=== PATIENT | female | born 1995 | race Caucasian/White ===

== ENCOUNTER 2019-06-16 16:39 | Emergency (ER) | payer OTHER ==
--- NOTE | 2019-06-16 16:50 | PDOC ---
Rapid Medical Evaluation Time Seen by Provider: 06/16/19 16:48 Medical Evaluation: Allergies Allergy/AdvReac Type Severity Reaction Status Date / Time No Known Allergies Allergy Verified 10/16/16 19:22 06/16/19 16:49 This patient had a brief in-person evaluation in triage CC: left lower abdominal pain , 5 weeks . Denies vaginal bleeding or dysuria PE: NAD unlabored breathing mild tenderness in left lower abdomen orders: labs, urine test This patient will proceed to the ED for further evaluation Discharge Disposition - Diagnosis Abdominal pain - Referrals - Patient Instructions - Post Discharge Activity
[2019-06-16 16:52] VITALS: BP 95/59; PULSE 78; TEMP 98.5; BMI 23.8
--- NOTE | 2019-06-16 18:57 | PDOC ---
History of Present Illness - General Chief Complaint: Pain Stated Complaint: LOWER LT SIDE PAIN/DISCOMFORT 5WKS Time Seen by Provider: 06/16/19 16:48 - History of Present Illness Initial Comments: 06/16/19 18:52 CHIEF COMPLAINT: pelvic pain HISTORY OF PRESENT ILLNESS: 23 yo presents to ED with left pelvic pain x 2- 3 days. Patient reports feeling a sharp pain to her left side in the evenings, "like something is squishing." Reports "some cramping sometimes," denies any vaginal bleeding, unusual odor or discharge. Reports urinary frequency but denies dysuria. LMP 6/15. No recent travel or sick contacts. PAST MEDICAL HISTORY: Denies past medical history FAMILY HISTORY: Denies SOCIAL HISTORY: Denies tobacco, alcohol, illicit drug use. SURGICAL HISTORY: Denies ALLERGIES: No known drug allergies REVIEW OF SYSTEMS General/Constitutional: Denies fever or chills. Denies weakness, weight change. HEENT: Denies change in vision. Denies ear pain or discharge. Denies sore throat. Cardiovascular: Denies chest pain or shortness of breath. Respiratory: Denies cough, wheezing, or hemoptysis. Gastrointestinal: Denies nausea, vomiting, diarrhea or constipation. Denies rectal bleeding. Genitourinary: Left pelvic pain. Urinary frequency x weeks. Denies dysuria,or change in urination. Musculoskeletal: Denies joint or muscle swelling or pain. Denies neck or back pain. Skin and breasts: Denies rash or easy bruising. Neurologic: Denies headache, vertigo, loss of consciousness, or loss of sensation. PHYSICAL EXAM General Appearance: Well-appearing, appropriately dressed. No apparent distress , no intoxication. HEENT: EOMI, PERRLA, normal ENT inspection, normal voice, TMs normal, pharynx normal. No conjunctival pallor. No photophobia, scleral icterus. Neck: Supple. Trachea midline. No tenderness, rigidity, carotid bruit, stridor , lymphadenopathy, or thyromegaly. Respiratory/Chest: Lungs CTAB. No shortness of breath, chest tenderness, respiratory distress, accessory muscle use. No crackles, rales, rhonchi, stridor , wheezing, dullness Cardiovascular: RRR. S1, S2. No JVD, murmur, bradycardia, tachycardia. Vascular Pulses: Dorsalis-Pedis (R): 2+, Dorsalis-Pedis (L): 2+ Gastrointestinal/Abdominal: Mild LLQ vs pelvic tenderness. Normal bowel sounds. Abdomen soft, non-distended. No tenderness or rebound tenderness. No organomegaly, pulsatile mass, guarding, hernia, hepatomegaly, splenomegaly. Lymphatic: No adenopathy, tenderness. Musculoskeletal/Extremities: Normal inspection. FROM of all extremities, normal capillary refill. Pelvis Stable. No CVA tenderness. No tenderness to extremities, pedal edema, swelling, erythema or deformity. Integumentary: Appropriate color, dry, warm. No cyanosis, erythema, jaundice or rash Neurologic: thermostatic controls supervisor II-XII intact. Fully oriented, alert. Appropriate mood/affect. Motor strength 5/5. No appreciable EOM palsy, facial droop or sensory deficit. 06/16/19 21:48 Past History - Past Medical History Allergies/Adverse Reactions: Allergies Allergy/AdvReac Type Severity Reaction Status Date / Time No Known Allergies Allergy Verified 06/16/19 16:52 Home Medications: Ambulatory Orders Cefuroxime Axetil [Ceftin -] 500 mg PO Q12H #20 tablet 10/14/16 Sulfamethoxazole/Trimethoprim [Bactrim Oral Suspension -] 10 ml PO BID #100 ml 10/16/16 Asthma: No Cancer: No Cardiac Disorders: No COPD: No Diabetes: No HTN: No Seizures: No Thyroid Disease: No - Surgical History Appendectomy: Yes - Suicide/Smoking/Psychosocial Hx Smoking History: Never smoked Have you smoked in the past 12 months: No Information on smoking cessation initiated: No Hx Alcohol Use: No Drug/Substance Use Hx: No Hx Substance Use Treatment: No *Physical Exam - Vital Signs Last Vital Signs Temp Pulse Resp BP Pulse Ox 98.5 F 78 19 95/59 L 100 06/16/19 16:49 06/16/19 16:49 06/16/19 16:49 06/16/19 16:49 06/16/19 16:49 ED Treatment Course - LABORATORY CBC & Chemistry Diagram: 06/16/19 18:50 06/16/19 18:50 Medical Decision Making - Medical Decision Making 06/16/19 21:48 23 yo presents to ED with left pelvic pain x 2-3 days. -labs, urine, TVUS US positive for IUP, gest age 5 wks 5 days. Advised pt to return to ED in 2 days for repeat bloodwork. Patient verbalized understanding and agrees to plan. *DC/Admit/Observation/Transfer Diagnosis at time of Disposition: Threatened miscarriage - Discharge Dispostion Disposition: HOME Condition at time of disposition: Stable Decision to Admit order: No - Referrals Referrals: Karissa Decker CNM [Certified Nurse [employer]] - - Patient Instructions Printed Discharge Instructions: DI for Threatened Additional Instructions: Please return on 48 hours for repeat bloodwork and ultrasound for continued evaluation of your symptoms. If you develop any vaginal bleeding, severe pain, or any new or worsening symptoms, please return to the ER. - Post Discharge Activity
[2019-06-16] MEDS ORDERED: SODIUM CHLORIDE 0.9% 500 ML INFUS.BAG IV ONE (19:29)
[2019-06-16 19:31] LABS: BASO % 0.8 % (0-2.0); EOS % 1.3 % (0-4.5); HEMATOCRIT 38.3 % (32.4-45.2); HEMOGLOBIN 12.9 GM/dL (10.7-15.3); LYMPH % 29.1 % (8-40); MCH 28.8 pg (25.7-33.7); MCHC 33.7 g/dl (32.0-36.0); MEAN CELL VOLUME 85.5 fl (80-96); MEAN PLT VOLUME 9.3 fl (7.5-11.1); MONO % 6.9 % (3.8-10.2); NEUT % 61.9 % (42.8-82.8); PLATELET COUNT 241 K/MM3 (134-434); RBC 4.49 M/mm3 (3.60-5.2); RDW 12.9 % (11.6-15.6); WHITE BLOOD COUNT 10.8 K/mm3 (4.0-10.0)
[2019-06-16 19:32] LABS: HYALINE CASTS 5 /lpf (0-8); URINE APPEARANCE CLEAR; URINE BACTERIA 52.5 /hpf (NEGATIVE); URINE BILIRUBIN NEGATIVE (NEGATIVE); URINE COLOR YELLOW; URINE GLUCOSE (UA) NEGATIVE (NEGATIVE); URINE KETONE TRACE (NEGATIVE); URINE LEUK ESTERASE TRACE (NEGATIVE); URINE NITRITE NEGATIVE (NEGATIVE); URINE PROTEIN NEGATIVE (NEGATIVE); URINE RBC 1 /hpf (0-4); URINE WBC 2 /hpf (0-5)
[2019-06-16 19:50] LABS: ALBUMIN 4.2 g/dl (3.4-5.0); BILIRUBIN,TOTAL 0.4 mg/dL (0.2-1); BLOOD UREA NITROGEN 10.6 mg/dL (7-18); CALCIUM 9.1 mg/dL (8.5-10.1); CREATININE 0.9 mg/dL (0.55-1.3); POTASSIUM 3.9 mmol/L (3.5-5.1); TOT PROT 7.9 g/dl (6.4-8.2)
== END 2019-06-16 22:00 | disposition home or self-care (01) ==
LOC: JER 16:39
PROC: 3E0337Z Introduction of Electrolytic and Water Balance Substance into Peripheral Vein, Percutaneous Approach (ICD-10-PCS; principal; 2019-06-16)
DX: O26.891 Other specified pregnancy related conditions, first trimester (principal); Z3A.01 Less than 8 weeks gestation of pregnancy; R10.9 Unspecified abdominal pain
CPT/HCPCS: 36415; 76817-TC; 80053; 81003; 84702; 85025; 86850; 86900; 86901; 87077; 87086; 87491; 87591; 99283-25

== ENCOUNTER 2020-02-13 02:50 | Inpatient (IN) | payer OTHER ==
[2020-02-13] MEDS: ELECTROLYTE-148 SOLN 1,000 ML IV SCH ×2 (03:15→04:45)
[2020-02-13 03:50] LABS: BASO % 0.5 % (0-2.0); EOS % 0.7 % (0-4.5); HEMATOCRIT 37.3 % (32.4-45.2); HEMOGLOBIN 12.4 GM/dL (10.7-15.3); LYMPH % 30.6 % (8-40); MCH 28.5 pg (25.7-33.7); MCHC 33.2 g/dl (32.0-36.0); MEAN CELL VOLUME 85.8 fl (80-96); MEAN PLT VOLUME 9.9 fl (7.5-11.1); NEUT % 61.2 % (42.8-82.8); PLATELET COUNT 235 K/MM3 (134-434); RBC 4.35 M/mm3 (3.60-5.2); RDW 13.5 % (11.6-15.6); WHITE BLOOD COUNT 12.9 K/mm3 (4.0-10.0)
[2020-02-13 04:05] LABS: INR 0.85 (0.83-1.09)
[2020-02-13 04:08] LABS: ACTIVATED PTT 28.6 SECONDS (25.2-36.5)
[2020-02-13 04:13] VITALS: BMI 29.5
[2020-02-13 04:14] LABS: BLOOD UREA NITROGEN 10.4 mg/dL (7-18); CALCIUM 8.8 mg/dL (8.5-10.1); CREATININE 0.7 mg/dL (0.55-1.3); POTASSIUM 3.8 mmol/L (3.5-5.1)
[2020-02-13] MEDS ORDERED: FENTANYL/BUPIVACAINE/NS/PF - PCEA - 50 ML DISP.SYRIN EP ONE (04:18)
[2020-02-13] MEDS ORDERED: PCA PUMP NR ONE (04:18)
--- NOTE | 2020-02-13 04:21 | HP ---
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: No: Alzheimer's, CVA, Dementia, Migraine, Multiple Sclerosis, Peripheral Neuropathy, Parkinson's, Seizure, Syncope, TIA, Vertigo, Other Cardiovascular: No: AFIB, Aneurysm, Aortic Insufficiency, Aortic Stenosis, CAD, CHF, Deep Vein Thrombosis, HTN, Hyperlipdemia, FL, Mitral Insufficiency, Mitral Stenosis, Murmur, Pulmonary Hypertension, Other Pulmonary: No: Asthma, Bronchitis, Cancer, COPD, O2 Dependent, Pneumonia, Previously Intubated, Pulmonary Embolus, Pulmonary Fibrosis, Sleep Apnea, Other Gastrointestinal: No: Ascites, Cancer, Constipation, Crohn's Disease, Diverticulitis, Diverticulosis, Esophageal Varices, Gastritis, GERD, GI Bleed, Hemorrhoids, Hiatal Hernia, Inflamatory Bowel Disease, Irritable Bowel Disease, Pancreatitis, Peptic Ulcer Disease, Ulcerative Colitis, Other Hepatobiliary: No: Cirrhosis, Cholelithiasis, Cholecystitis, Choledocholithiasis, Hepatitis A, Hepatitis B, Hepatitis C, Other Renal/: No: Renal Failure, Renal Inusuff, BPH, Cancer, Hematuria, Hemodialysis, Neurogenic Bladder, Renal Calculi, UTI, Other Reproductive: No: Ectopic , Endometriosis, Fibroids, PID, Polycystic Ovary Syndrome, Postmenopausal, Other ...: 4 ...Para: 1 ...Term: 1 ...Spon : 1 ...Induced : 1 ...LMP: 05/08/19 ... Weeks Gestation by Dates: 39.6 ...EDC by Dates: 02/12/20 ...EDC by Sono: 02/13/20 Heme/Onc: No: Anemia, B12 Deficiency, Bleeding Disorder, Cancer, Current Chemotherapy, Current Radiation Therapy, Hemochromatosis, Hypercoaguable State, Myeloproliferative Synd, Sickle Cell Disease, Sickle Cell Trait, Thrombocytopenia, Other Infectious Disease: No: AIDS, C-Diff, Herpes Zoster, HIV, MRSA, STD's, Tuberc ulosis, VREF, Other Psych: No: Addictions, Anxiety, Bipolar, Depression, Panic, Psychosis, Schizophrenia, Other Musculoskeletal: No: Bursitis, Chronic low back pain, Hemiparesis, Hemiplegia, Osteoarthritis, Paraplegia, Other Rheumatology: No: Fibromyalgia, Gout, Lupus, Rheumatoid Arthritis, Sarcoidosis, Vasculitis, Other ENT: No: Allergic Rhinitis, Sinusitis, Other Endocrine: No: Tez's Disease, [place]'s Disease, Diabetes Insipidus, Diabetes Mellitus, Hyperparathyroidism, Hyperthyroidism, Hypothyroidism, Osteopenia, SIADH, Other Dermatology: No: Basal Cell, Cellulitis, Eczema, Melanoma, Psoriasis, Squamous Cell, Other - Past Surgical History Past Surgical History: Yes: None Hx Myomectomy: No Hx Transabdominal Cerclage: No - Smoking History Smoking history: Never smoked Have you smoked in the past 12 months: No - Alcohol/Substance Use Hx Alcohol Use: No Home Medications - Allergies Allergies/Adverse Reactions: Allergies Allergy/AdvReac Type Severity Reaction Status Date / Time No Known Allergies Allergy Verified 06/16/19 16:52 - Home Medications Home Medications: Ambulatory Orders 19 Tablet 1 tab PO DAILY 02/13/20 Family Medical History Family History: Unremarkable Review of Systems - Review of Systems Constitutional: reports: No Symptoms Eyes: reports: No Symptoms HENT: reports: No Symptoms Neck: reports: No Symptoms Cardiovascular: reports: No Symptoms Respiratory: reports: No Symptoms Gastrointestinal: reports: No Symptoms Genitourinary: reports: No Symptoms Breasts: reports: No Symptoms Reported Musculoskeletal: reports: No Symptoms Integumentary: reports: No Symptoms Neurological: reports: No Symptoms Endocrine: reports: No Symptoms Hematology/Lymphatic: reports: No Symptoms Psychiatric: reports: No Symptoms Physical Exam - Maternity Vital Signs: Vital Signs Temperature 97.8 F 02/13/20 03:54 Pulse Rate 76 02/13/20 03:54 Respiratory Rate 20 02/13/20 03:54 Blood Pressure 120/76 02/13/20 03:54 O2 Sat by Pulse Oximetry (%) Constitutional: Yes: Well Nourished HENT: Yes: Atraumatic Neck: Yes: Supple Cardiovascular: Yes: Regular Rate and Rhythm Breast(s): Yes: Other - Abdominal Exam/OB Presentation: Vertex Contractions: Yes Regularity: Regular Intensity: Mod/Strong Monitor Mode: External Heart Rate (range): 140 Category: I Accelerations: Uniform Decelerations: None - Vaginal Exam/OB Vaginal Bleediing: No Dilatation (cm): 8 Effacement (%): 90 Amniotic Membrane Status: Intact Presentation: Vertex/Position Station: -1 - Physical Exam Musculoskeletal: Yes: WNL Extremities: Yes: WNL Edema: Yes Edema: LLE: Trace, RLE: Trace Integumentary: Yes: WNL Deep Tendon Reflex Grade: Normal +2 ...Motor Strength: WNL Psychiatric: Yes: Alert, Oriented - Labs Lab Results: CBC, BMP 02/13/20 03:35 02/13/20 03:35 Imaging - Results Ultrasound: Report Reviewed Assessment/Plan 24 y/o @ 40.0wks, active labor, reassuring status, GBS negative, desiring epidural -Epidural is OK -expectant management -Anticipate VD
[2020-02-13] MEDS ORDERED: BUPIVACAINE HCL/PF 0.25% (2.5MG/ML) 10 ML VIAL ONE (04:32)
[2020-02-13] MEDS ORDERED: OXYTOCIN 20 UNITS in 0.9% NS 20 UNIT/1,000 ML INFUS.BAG IV ONE (05:22)
[2020-02-13] MEDS ORDERED: NALOXONE HCL 0.4 MG/ML VIAL IVPUSH PRN (05:52)
[2020-02-13] MEDS ORDERED: FENTANYL/BUPIVACAINE/NS/PF - PCEA - 50 ML DISP.SYRIN EP SCH ×2 (06:00→06:12)
[2020-02-13] MEDS ORDERED: BISACODYL 10 MG SUPP.RECT RC PRN (08:23)
[2020-02-13] MEDS ORDERED: BENZOCAINE 20% 57 GM BOTTLE TP PRN (08:23)
[2020-02-13] MEDS ORDERED: WITCH HAZEL 50% (TUCKS) 40 PAD/JAR PAD TP PRN (08:23)
[2020-02-13] MEDS ORDERED: ACETAMINOPHEN 325 MG TABLET (FP) PO PRN (08:23)
[2020-02-13] MEDS ORDERED: BENZOCAINE 28 GM HEMORRHOIDAL OINTMENT TP PRN (08:23)
[2020-02-13] MEDS ORDERED: IBUPROFEN 600 MG TABLET (FP) PO PRN (08:23)
[2020-02-13] MEDS ORDERED: OXYTOCIN 20 UNITS in 0.9% NS 20 UNIT/1,000 ML INFUS.BAG IV SCH (08:30)
--- NOTE | 2020-02-13 08:32 | PN ---
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 Shoulders delivered by rest of the body. Cord clamped and cut after delay, cord cyst noted. Placenta delivered spontaneously and intact, 3 VC. Exam revealed 2nd degree perineal and right labia minora laceration. Repaired in standard fashion with 3.0 polysorb sutures. Excellent homostasis and re-approximation achieved. Instrument/sponge count correct x 2 and confirmed by nurse.
[2020-02-13 21:27] VITALS: TEMP 97.8
--- NOTE | 2020-02-14 08:18 | PN ---
Post Progress Note - Subjective Subjective: Ambulating, voiding, tolerating PO, lochia decreased, passing flatus Post Day: 1 Type of Delivery: Vital Signs: Vital Signs Temperature 97.8 F 02/13/20 19:00 Pulse Rate 76 02/13/20 19:00 Respiratory Rate 20 02/13/20 19:00 Blood Pressure 105/60 02/13/20 19:00 O2 Sat by Pulse Oximetry (%) 100 02/13/20 10:00 Breast Exam: Yes: Other Uterus: Yes: Fundus Firm Abdomen/GI: Yes: Abdomen soft Lochia, amount: Moderate Extremities: Yes: Calves non-tender Perineum: Yes: Intact Activity: Ambulating - Labs Labs: CBC WBC 12.9 K/mm3 (4.0-10.0) H 02/13/20 03:35 RBC 4.35 M/mm3 (3.60-5.2) 02/13/20 03:35 Hgb 12.4 GM/dL (10.7-15.3) 02/13/20 03:35 Hct 37.3 % (32.4-45.2) 02/13/20 03:35 MCV 85.8 fl (80-96) 02/13/20 03:35 MCH 28.5 pg (25.7-33.7) 02/13/20 03:35 MCHC 33.2 g/dl (32.0-36.0) 02/13/20 03:35 RDW 13.5 % (11.6-15.6) 02/13/20 03:35 Plt Count 235 K/MM3 (134-434) 02/13/20 03:35 MPV 9.9 fl (7.5-11.1) 02/13/20 03:35 Absolute Neuts (auto) 7.9 K/mm3 (1.5-8.0) 02/13/20 03:35 Neutrophils % 61.2 % (42.8-82.8) 02/13/20 03:35 Lymphocytes % 30.6 % (8-40) 02/13/20 03:35 Monocytes % 7.0 % (3.8-10.2) 02/13/20 03:35 Eosinophils % 0.7 % (0-4.5) 02/13/20 03:35 Basophils % 0.5 % (0-2.0) 02/13/20 03:35 Nucleated RBC % 0 % (0-0) 02/13/20 03:35 Assessment/Plan PPD # 1 in stable condition, PP counseling carried ou -Continue PP care -Anticipate D/C home tomorrow
[2020-02-14] MEDS ORDERED: IBUPROFEN 100 MG/5 ML UNIT DOSE CUPS PO PRN (10:00)
[2020-02-14] MEDS ORDERED: FLU VACCINE QUAD 60 MCG/0.5 ML (MDV 19-20) IM ONE (10:00)
[2020-02-14] MEDS ORDERED: FLU VACC QS2019-20(6MOS UP)/PF 60 MCG/0.5 ML SYRINGE IM ONE (10:00)
[2020-02-14] MEDS: DIPHTH,PERTUSS(ACELL),TET 0.5 ML DISP.SYRIN IM ONE ×2 (10:04→10:06)
[2020-02-14 12:50] LABS: BASO % 0.7 % (0-2.0); EOS % 0.7 % (0-4.5); HEMATOCRIT 32.4 % (32.4-45.2); HEMOGLOBIN 10.8 GM/dL (10.7-15.3); LYMPH % 18.9 % (8-40); MCH 28.4 pg (25.7-33.7); MCHC 33.3 g/dl (32.0-36.0); MEAN CELL VOLUME 85.4 fl (80-96); MEAN PLT VOLUME 10.1 fl (7.5-11.1); MONO % 6.7 % (3.8-10.2); PLATELET COUNT 213 K/MM3 (134-434); RDW 13.6 % (11.6-15.6); WHITE BLOOD COUNT 12.7 K/mm3 (4.0-10.0)
[2020-02-14 15:47] VITALS: BP 94/58; PULSE 88
[2020-02-14] MEDS ORDERED: SENNOSIDES/DOCUSATE COMBO (SENNA PLUS) TABLET (UD) PO PRN (22:00)
== END 2020-02-14 15:05 | disposition home or self-care (01) | DRG 560 ==
LOC: JLDR 02:50 → J3W 10:05
PROVIDERS: ADMIT Student in an Organized Health Care Education/Training Program; ATTEND Student in an Organized Health Care Education/Training Program
PROC: 10E0XZZ Delivery of Products of Conception, External Approach (ICD-10-PCS; principal; 2020-02-13)
PROC: 0W8NXZZ Division of Female Perineum, External Approach (ICD-10-PCS; 2020-02-13)
PROC: 0KQM0ZZ Repair Perineum Muscle, Open Approach (ICD-10-PCS; 2020-02-13)
DX: O70.1 Second degree perineal laceration during delivery (principal); Z3A.40 40 weeks gestation of pregnancy; Z37.0 Single live birth
CPT/HCPCS: 36415; 59409; 80048; 85025; 85610; 85730; 86593; 86850; 86900; 86901; 87389; 90686; 90715